=== PATIENT | female | born 1955 | race Caucasian/White ===

== ENCOUNTER 2023-11-27 06:35 | Day surgery (SDC) | payer OTHER ==
[2023-11-20 13:59] VITALS: BMI 26.6
[2023-11-27 09:49] VITALS: TEMP 98
[2023-11-27 10:20] VITALS: BP 119/64; PULSE 51; RESP 18
== END 2023-11-27 10:20 | disposition home or self-care (01) ==
LOC: JASU-ENDO 06:35
PROVIDERS: ATTEND Internal Medicine Gastroenterology
PROC: 0DJD8ZZ Inspection of Lower Intestinal Tract, Via Natural or Artificial Opening Endoscopic (ICD-10-PCS; principal; 2023-11-27 08:30)
DX: Z12.11 Encounter for screening for malignant neoplasm of colon (principal); D17.5 Benign lipomatous neoplasm of intra-abdominal organs; K64.8 Other hemorrhoids; Z86.010 Personal history of colon polyps